=== PATIENT | male | born 1940 | race Caucasian/White ===

== ENCOUNTER 2021-07-10 23:21 | Inpatient (IN) | payer MEDICARE, SELFPAY ==
[~2021-07-10] VITALS: Ht 157.5 cm; Wt 45.4 kg
--- NOTE | 2021-07-10 23:23 | NUR ---
PT BROUGHT TO BED 1 VIA EMS [facility]
[2021-07-10 23:32] VITALS: BP 105/54
[2021-07-10] MEDS ORDERED: ALBUTEROL SULFATE/IPRATROPIU 3 ML SOL IH ONE (23:55)
[2021-07-10] MEDS ORDERED: AZITHROMYCIN 1,000 MG in DEXTROSE 5% 500 ML IV ONE (23:55)
[2021-07-10] MEDS ORDERED: DEXAMETHASONE 4 MG/ML VIAL IVP ONE (23:55)
--- NOTE | 2021-07-11 00:02 | NUR ---
received pt from EMS and placed to bed 01. pt currently a/o x 3, gcs 14. pt is a 80 year old male with hx of HTN, HLD, GERD, DM, CVA with right sided hemiparesis biba from home for cc of dyspnea for 2 weeks. per EMS, sts that pt was dx with covid last year and PNA and recovered from it. was rediagnosed with PNA again 2 weeks ago and sent home on 02. pt noticed today that 02 was as low as 74% on 4lpm n/c. arrived to ER on 15lpm NRB. currently placed on 3lpm n/c and satting well.
[2021-07-11] MEDS ORDERED: cefTRIAXone 1,000 MG VIAL ONE (00:04)
[2021-07-11] MEDS ORDERED: AZITHROMYCIN 500 MG INJ VIAL IV ONE (00:04)
--- NOTE | 2021-07-11 00:40 | NUR ---
flu, covid swab collected.
[2021-07-11 00:55] LABS: BASOPHILS % (AUTO) 0.3 % (0.0-2.0); EOSINOPHILS # (AUTO) 0.1 K/uL (0-0.4); EOSINOPHILS % (AUTO) 1.8 % (0.0-4.0); HEMATOCRIT 24.5 % (36-52); HEMOGLOBIN 8.2 g/dL (12.0-18.0); LYMPHOCYTES # (AUTO) 0.4 K/uL (2.0-11.5); LYMPHOCYTES % (AUTO) 12.5 % (20.5-51.1); MEAN CORPUSCULAR HEMOGLOBIN 31 pg (27-31); MEAN CORPUSCULAR HGB CONC 33 g/dL (33-37); MEAN CORPUSCULAR VOLUME 93.3 fL (80-94); MONOCYTES # (AUTO) 0.3 K/uL (0.8-1.0); MONOCYTES % (AUTO) 8.7 % (1.7-9.3); NEUTROPHILS # (AUTO) 2.6 K/uL (1.8-7.7); NEUTROPHILS % (AUTO) 76.7 % (42.2-75.2); PLATELET COUNT (AUTO) 234 K/uL (140-450); RED BLOOD CELL COUNT(AUTO) 2.63 MIL/uL (4.20-6.10); RED CELL DISTRIBUTION WIDTH 15.6 % (11.6-13.7); WHITE BLOOD COUNT (AUTO) 3.4 K/uL (4.8-10.8)
[2021-07-11 01:20] LABS: ALBUMIN 1.9 g/dL (3.4-5.0); ANION GAP 9.2 (8-16); ASPARTATE AMINOTRANSFERASE 18 U/L (15-37); CARBON DIOXIDE 27.1 mmol/L (21-32); CHLORIDE 104 mmol/L (98-107); CREATININE 1.3 mg/dL (0.6-1.3); GLUCOSE 65 mg/dL (74-106); POTASSIUM 4.3 mmol/L (3.5-5.1); SODIUM SERUM 136 mmol/L (136-145); TOTAL BILIRUBIN 0.3 mg/dL (0.0-1.0); UREA NITROGEN, BLOOD 23 mg/dL (7-18)
[2021-07-11] MEDS ORDERED: ENOXAPARIN 40 MG/0.4 ML SYR SUBQ SCH (02:00)
[2021-07-11] MEDS ORDERED: ENOXAPARIN 30 MG/0.3 ML SYR SUBQ SCH (02:15)
--- NOTE | 2021-07-11 02:20 | NUR ---
pt taken to CT via coleen
--- NOTE | 2021-07-11 03:30 | NUR ---
NAD at this time. pt laying down on semi fowlers position.
--- NOTE | 2021-07-11 04:15 | NUR ---
remains on 6lpm n/c at this time. NAD
--- NOTE | 2021-07-11 07:15 | NUR ---
report received from yue ivy. all cares transferred at this time.
[2021-07-11] MEDS ORDERED: ACETAMINOPHEN 325 MG TAB PO PRN (09:25)
[2021-07-11] MEDS ORDERED: SODIUM PHOS / POTASSIUM PHOS 1 PKT PDR PO PRN (09:25)
[2021-07-11] MEDS ORDERED: MAG SULF 2000 MG/WATER PREMIX 50 ML IV PRN (09:25)
[2021-07-11] MEDS ORDERED: ONDANSETRON 4 MG/2 ML VIAL IM/IVP PRN (09:25)
[2021-07-11] MEDS ORDERED: HYDROcodone/APAP 5/325 MG 1 TAB TAB PO PRN (09:25)
[2021-07-11] MEDS ORDERED: MORPHINE SULFATE 2 MG/ML SYR IVP PRN (09:25)
[2021-07-11] MEDS ORDERED: DOCUSATE SODIUM 100 MG GELCAP PO PRN (09:25)
[2021-07-11] MEDS: NACL 0.9% 1,000 ML IV SCH (09:48)
--- NOTE | 2021-07-11 16:07 | NUR ---
PATIENT HAS BEEN SCREENED AND CATEGORIZED HIGH NUTRITION RISK. PATIENT WILL BE SEEN WITHIN 1-2 DAYS OF ADMISSION. JOE MADSEN [address]
--- NOTE | 2021-07-11 19:24 | NUR ---
REPORT GIVEN TO MILAGROS HEBERT. ALL CARE TRANSFERRED AT THIS TIME.
--- NOTE | 2021-07-11 19:33 | NUR ---
received pt from day shift MILAGROS diaz. pt currently a/o x 3, gcs 14 as baseline from previous CVA. on 3lpm n/c. IV site intact with NS maintenance running.
--- NOTE | 2021-07-11 20:35 | NUR ---
report given to Leonel LINARES from Tele unit.
[2021-07-11 21:25] VITALS: BP 123/56
--- NOTE | 2021-07-11 21:30 | NUR ---
RECEIVED PT FROM ER NURSE VIA PALLAVI FOR CONTINUITY OF CARE. PT AWAKE AND ALERT, BRITISH SPEAKING. ON ROOM AIR. IV ON RAC G18 INFUSING WELL.R ABOVE KNEE AMPUTATION. SKIN WARM, DRY AND INTACT. PT BREATHING EQUAL AND UNLABORED. DENIES SOB. DENIES ANY PAIN.PT ORIENTED TO ROOM AND CALL LIGHT, MRSA CULTURE COLLECTED. BED IN LOW LOCKED POSITION, CALL LIGHT WITHIN REACH. ALL PRECAUTION IN PLACE.WILL CONTINUE TO MONITOR.
[2021-07-11 22:19] LABS: MAGNESIUM 1.7 mg/dL (1.8-2.4); PHOSPHORUS 2.9 mg/dL (2.5-4.9)
[2021-07-11] MEDS ORDERED: ALBUTEROL SULFATE/IPRATROPIU 3 ML SOL IH PRN (23:50)
--- NOTE | 2021-07-12 00:38 | NUR ---
SCHEDULED ANTIBIOTICS GIVEN. NO ACUTE DRUG REACTION NOTED. ALL PRECAUTIONS IN PLACE. PT NO S/SX OF DISTRESS. CALL LIGHT WITHIN REACH. WILL CONTINUE TO MONITOR.
[2021-07-12 01:00] VITALS: BP 137/71
--- NOTE | 2021-07-12 02:00 | NUR ---
PT ASLEEP. NO DISTRESS NOTED. BREATHING EQUAL AND UNLABORED. ALL PRECAUTIONS IN PLACE. WILL CONTINUE TO MONITOR.
[2021-07-12 04:00] VITALS: BP 139/96
--- NOTE | 2021-07-12 04:00 | NUR ---
PT VSS STABLE. O2 SAT AT 96% ON ROOM AIR. CALL LIGHT WITHIN REACH. WILL CONTINUE TO MONITOR.
--- NOTE | 2021-07-12 06:22 | NUR ---
PT IS STABLE.NO ACUTE EVENTS THROUGHOUT THE NIGHT. ALL NEEDS ATTENDED. NO S/SX OF DISTRESS. ALL PRECAUTIONS IN PLACE.CALL LIGHT WITHIN REACH. WILL ENDORSE TO AM SHIFT NURSE.
--- NOTE | 2021-07-12 07:27 | NUR ---
ENDORSED PT TO AM SHIFT NURSE FOR CONTINUITY OF CARE. PT IS STABLE.
[2021-07-12 07:53] LABS: ANION GAP 13.6 (8-16); CHLORIDE 106 mmol/L (98-107); CREATININE 1.2 mg/dL (0.6-1.3); GLUCOSE 391 mg/dL (74-106); POTASSIUM 4.6 mmol/L (3.5-5.1); SODIUM SERUM 136 mmol/L (136-145); UREA NITROGEN, BLOOD 26 mg/dL (7-18)
[2021-07-12 08:00] VITALS: BP 122/66
--- NOTE | 2021-07-12 08:00 | NUR ---
RECEIVED REPORT FROM BAFFLE MOUNTER FOR CONTINUITY OF CARE. PATIENT ALERT AWAKE ORIENTED X2, GABONESE SPEAKING, NOT IN ANY DISTRESS NOTED. WITH IVF ON GOING AND INFUSING WELL. ON RA. ON MONITOR SHOWS SR. CALL LIGHT WITHIN REACH. NEEDS ATTENDED. WILL CONTINUE TO MONITOR.
[2021-07-12 08:07] LABS: BASOPHILS % (AUTO) 0.2 % (0.0-2.0); HEMATOCRIT 22.1 % (36-52); HEMOGLOBIN 7.3 g/dL (12.0-18.0); LYMPHOCYTES # (AUTO) 0.4 K/uL (2.0-11.5); LYMPHOCYTES % (AUTO) 8.5 % (20.5-51.1); MEAN CORPUSCULAR HEMOGLOBIN 31 pg (27-31); MEAN CORPUSCULAR HGB CONC 33 g/dL (33-37); MEAN CORPUSCULAR VOLUME 94.4 fL (80-94); MONOCYTES # (AUTO) 0.4 K/uL (0.8-1.0); MONOCYTES % (AUTO) 8.9 % (1.7-9.3); NEUTROPHILS # (AUTO) 3.4 K/uL (1.8-7.7); NEUTROPHILS % (AUTO) 82.4 % (42.2-75.2); PLATELET COUNT (AUTO) 239 K/uL (140-450); RED BLOOD CELL COUNT(AUTO) 2.34 MIL/uL (4.20-6.10); RED CELL DISTRIBUTION WIDTH 15.7 % (11.6-13.7); WHITE BLOOD COUNT (AUTO) 4.2 K/uL (4.8-10.8)
[2021-07-12] MEDS: PANTOPRAZOLE 40 MG TABEC PO SCH (08:57)
[2021-07-12] MEDS: AZITHROMYCIN 250 MG TAB PO SCH (08:57)
--- NOTE | 2021-07-12 09:00 | NUR ---
DUE MEDICATIONS GIVEN AND TOLERATED WELL. WILL CONTINUE TO MONITOR.
[2021-07-12] MEDS: NACL 0.9% 1,000 ML IV SCH (09:25)
[2021-07-12 12:00] VITALS: BP 140/71
--- NOTE | 2021-07-12 12:00 | NUR ---
REPORT GIVEN TO SNOW FOR CONTINUITY OF CARE. IN STABLE CONDITION.
--- NOTE | 2021-07-12 12:05 | NUR ---
RECEIVED REPORT FROM MANAGER CARE NURSE FOR CONTINUITY OF CARE. PT IS AWAKE AND ALERT. ON RA WITH BREATHING UNLABORED. AMBULATORY WITH ASSIST. SKIN IS WARM, DRY, AND INTACT. IV IS IN THE RIGHT AC 18 GAUGE RUNNING NS AT 40 ML PER HOUR PER ORDER. PT IS STABLE. PLAN OF CARE DISCUSSED.
--- NOTE | 2021-07-12 14:48 | NUR ---
PT'S GLUCOSE READING FROM THIS MORNING LAB DRAW WAS ELEVATED IN THE 300'S. RECHECKED PT'S BS VIA ACCU CHECK AND IT WAS 360. NOTIFIED DR. NIEVES. HE STATED TO COVER THE GLUCOSE LEVEL VIA SLIDING SCALE AND HE WILL ADD ACCU CHECKS ACHS. WILL ADMINISTER INSULIN WHEN ORDERED.
[2021-07-12] MEDS ORDERED: DEXTROSE 50% 50 ML SYR IVP PRN (14:50)
[2021-07-12] MEDS: INSULIN LISPRO SLIDING SCALE 100 UNITS/ML VIAL SUBQ PRN ×2 (14:59→17:44)
--- NOTE | 2021-07-12 15:01 | NUR ---
07/12/21 RD INITIAL ASSESSMENT COMPLETED PLEASE REFER TO NUTRITION ASSESSMENT UNDER CARE ACTIVITY FOR ESTIMATED NUTRITIONAL NEEDS. 1. [facility] DIET D/T INCREASED BLOOD GLUCOSE 2. ADD GLUCERNA BID PER PROTOCOL 3. MONITOR BLOOD GLUCOSE LEVELS AND PO INTAKE 4. RD TO FOLLOW-UP 3-5 DAYS, MODERATE RISK (DOWNGRADED D/T PT EATING WELL) JOE MADSEN RD
[2021-07-12 16:00] VITALS: BP 114/83
--- NOTE | 2021-07-12 16:49 | NUR ---
ROUNDED ON PT. HE IS SLEEPING IN SEMI FOWLERS POSITION. NO DISTRESS NOTED ON RA. PT DENIES PAIN OR ANY DISCOMFORT. WILL CONTINUE TO MONITOR.
[2021-07-12] MEDS: BLOOD GLUCOSE MONITORING 1 DEV DEV FS SCH ×2 (17:43→21:27)
--- NOTE | 2021-07-12 18:29 | NUR ---
PT IS STABLE. SPEAKING APPROPRIATELY. NO SIGNS OR SYMPTOMS OF DISTRESS. EATING DINNER AT BEDSIDE. WILL CONTINUE TO MONITOR.
--- NOTE | 2021-07-12 19:10 | NUR ---
ENDORSED PT TO BASIN OPERATOR NURSE FOR CONTINUITY OF CARE. PT IS STABLE. PLAN OF CARE DISCUSSED.
--- NOTE | 2021-07-12 19:15 | NUR ---
RECEIVED PT BEDSIDE REPORT FOR CONTINUITY OF CARE.
[2021-07-12 20:00] VITALS: BP 131/60
[2021-07-13 04:00] VITALS: BP 128/62
[2021-07-13 06:00] VITALS: BP 128/62
[2021-07-13] MEDS: BLOOD GLUCOSE MONITORING 1 DEV DEV FS SCH ×4 (06:08→20:40)
[2021-07-13 07:47] LABS: ANION GAP 12.1 (8-16); CARBON DIOXIDE 22.1 mmol/L (21-32); CHLORIDE 108 mmol/L (98-107); CREATININE 1.1 mg/dL (0.6-1.3); GLUCOSE 97 mg/dL (74-106); POTASSIUM 4.2 mmol/L (3.5-5.1); SODIUM SERUM 138 mmol/L (136-145); UREA NITROGEN, BLOOD 24 mg/dL (7-18)
--- NOTE | 2021-07-13 07:57 | NUR ---
RECEIVED REPORT FROM SECTION GANG FOR CONTINUITY OF CARE. PATIENT ALERT AWAKE ORIENTED X3, NOT IN ANY ACUTE DISTRESS NOTED. WITH IVF ON GOING ON RIGHT AC GAUGE 18 INFUSING WELL. INITIAL ASSESSMENT INITIATED. FALL RISK OBSERVED. CALL LIGHT WITHIN REACH. NEEDS ATTENDED. WILL CONTINUE TO MONITOR.
[2021-07-13 08:00] VITALS: BP 124/70
[2021-07-13 08:17] LABS: BASOPHILS % (AUTO) 0.2 % (0.0-2.0); EOSINOPHILS % (AUTO) 0.9 % (0.0-4.0); HEMATOCRIT 24.5 % (36-52); HEMOGLOBIN 8.1 g/dL (12.0-18.0); LYMPHOCYTES # (AUTO) 0.7 K/uL (2.0-11.5); LYMPHOCYTES % (AUTO) 15.7 % (20.5-51.1); MEAN CORPUSCULAR HEMOGLOBIN 31 pg (27-31); MEAN CORPUSCULAR HGB CONC 33 g/dL (33-37); MEAN CORPUSCULAR VOLUME 93.7 fL (80-94); MONOCYTES # (AUTO) 0.4 K/uL (0.8-1.0); MONOCYTES % (AUTO) 8.4 % (1.7-9.3); NEUTROPHILS # (AUTO) 3.3 K/uL (1.8-7.7); NEUTROPHILS % (AUTO) 74.8 % (42.2-75.2); PLATELET COUNT (AUTO) 319 K/uL (140-450); RED BLOOD CELL COUNT(AUTO) 2.61 MIL/uL (4.20-6.10); RED CELL DISTRIBUTION WIDTH 15.6 % (11.6-13.7); WHITE BLOOD COUNT (AUTO) 4.4 K/uL (4.8-10.8)
[2021-07-13] MEDS: PANTOPRAZOLE 40 MG TABEC PO SCH (08:41)
[2021-07-13] MEDS: AZITHROMYCIN 250 MG TAB PO SCH (08:41)
[2021-07-13] MEDS: INSULIN LISPRO SLIDING SCALE 100 UNITS/ML VIAL SUBQ PRN ×2 (11:26→20:44)
--- NOTE | 2021-07-13 14:02 | NUR ---
DC PLANNING: THE PATIENT PRESENTED WITH SOB AND WAS DESATTING TO THE LOW 80'S AT HOME PER FAMILY. H/O CABG, RIGHT BKA, FAMILY STATES THAT THE PATIENT HAS HAD NEW ONSET CONFUSION FOR THE LAST 2 WEEKS BUT BASELINE IS ALERT AND ORIENTED. CXR SHOW EFFUSIONS AND ATELECTASIS, ON ZITHROMAX PO, ROCEPHIN IV AND IVF'S, ON RA. CM SPOKE WITH THE PATIENTS DAUGHTER JASON BY PHONE TO DISCUSS DCP AND ORDER FOR SNF PLACEMENT. THE PATIENT LIVES IN A SINGLE STORY HOUSE WITH HIS DAUGHTER, , SON IN LAW AND GRANDCHILDREN. HE CAN STAND BUT IS PRIMARILY WC BOUND AND ALSO HAS A 3 IN 1 COMMODE, SLIDING BOARD AND O2. HE HAD COVID LAST MAY AND WAS LAST BY [facility] IN MAY. FAMILY WANTS PATIENT TO DC HOME WITH HOME HEALTH, CM WILL FOLLOW FOR NEEDS. Addendum: 07/14/21 at 1134 by Nydia Rico CM DC PLANNING: HOME HEALTH ORDERS AND CLINICAL PACKET FAXED TO [facility]. CM WILL FOLLOW. Addendum: 07/14/21 at 1437 by Nydia Rico CM DC PLANNING: MULTIPLE ATTEMPTS TO FAX HOME HEALTH REQUEST TO [facility], [facility] IS TRYING TO REACH THEM BY PHONE TO SUBMIT REQUEST TO RESUME HOME HEALTH. [facility] WILL FOLLOW.
[2021-07-13] MEDS: NACL 0.9% 1,000 ML IV SCH (15:53)
[2021-07-13 16:00] VITALS: BP 149/81
--- NOTE | 2021-07-13 19:20 | NUR ---
REPORT GIVEN TO PERINATAL TECH FOR CONTINUITY OF CARE. PATIENT IN STABLE CONDITION.
--- NOTE | 2021-07-13 19:21 | NUR ---
RECEIVED REPORT FROM DAY RN. PT IS AAOX3. CZECH SPEAKING ONLY. RESPIRATIONS ARE EQUAL AND UNLABORED ON RA. PT SKIN IS INTACT. R AKA. AMBULATORY W/ ASSIST. IV IS IN THE RIGHT AC 18 GAUGE RUNNING NS AT 40 ML PER HOUR PER ORDER. PT IS CONTINENT OF B/B. PT IS STABLE. PLAN OF CARE DISCUSSED. CALL LIGHT IS WITHIN REACH. WILL CONTINUE TO MONITOR.
[2021-07-13 20:00] VITALS: BP 124/61
--- NOTE | 2021-07-13 20:43 | NUR ---
VSS. BS 184 ADMIN HUMALOG PER ORDERS. TED MEDICATION GIVEN. MED EDUCATION PROVIDED. ALL NEEDS MET. WILL CONTINUE TO MONITOR.
--- NOTE | 2021-07-13 22:10 | NUR ---
ROUNDS MADE. PT OBSERVED LAYING IN BED WITH BLANKET OVER HEAD. CHEST RISE AND FALL NOTED. CALL LIGHT IS WITHIN REACH.
--- NOTE | 2021-07-14 00:18 | NUR ---
ASSISTED PT WITH URINAL. ALL NEEDS MET. CALL LIGHT IS WITHIN REACH
--- NOTE | 2021-07-14 02:20 | NUR ---
ROUNDS MADE. PT OBSERVED LAYING IN BED APPEARS TO BE ASLEEP. CHESTS RISE AND FALL NOTED. WILL CONTINUE TO MONITOR.
[2021-07-14 04:00] VITALS: BP 127/60
--- NOTE | 2021-07-14 04:00 | NUR ---
VITAL SIGNS ARE WITHIN NORMAL LIMITS. ALL SAFETY MEASURES ARE IN PLACE. WILL CONTINUE TO MONITOR.
[2021-07-14] MEDS: BLOOD GLUCOSE MONITORING 1 DEV DEV FS SCH ×4 (05:48→21:51)
--- NOTE | 2021-07-14 06:30 | NUR ---
BS 88 NO COVERAGE NEEDED. SNACK AT BEDSIDE. ALL SAFETY MEASURES ARE IN PLACE. CALL LIGHT IS WITHIN REACH. WILL CONTINUE TO MONITOR.
--- NOTE | 2021-07-14 07:08 | NUR ---
GAVE BEDSIDE REPORT TO DAY RN. PT ENDORSED IN STABLE CONDITION.
--- NOTE | 2021-07-14 07:10 | NUR ---
RECEIVED ENDORSEMENT FROM ARMORED MACHINE OPERATOR FOR CONTINUITY OF CARE. PT ASLEEP ALL SAFETY MEASURE IN PLACE.
[2021-07-14 07:32] LABS: BASOPHILS % (AUTO) 0.3 % (0.0-2.0); HEMATOCRIT 23.8 % (36-52); HEMOGLOBIN 7.9 g/dL (12.0-18.0); LYMPHOCYTES # (AUTO) 0.6 K/uL (2.0-11.5); MEAN CORPUSCULAR HEMOGLOBIN 31 pg (27-31); MEAN CORPUSCULAR HGB CONC 33 g/dL (33-37); MEAN CORPUSCULAR VOLUME 93.2 fL (80-94); MONOCYTES # (AUTO) 0.4 K/uL (0.8-1.0); MONOCYTES % (AUTO) 10.8 % (1.7-9.3); NEUTROPHILS # (AUTO) 2.6 K/uL (1.8-7.7); NEUTROPHILS % (AUTO) 70.9 % (42.2-75.2); PLATELET COUNT (AUTO) 319 K/uL (140-450); RED BLOOD CELL COUNT(AUTO) 2.56 MIL/uL (4.20-6.10); WHITE BLOOD COUNT (AUTO) 3.7 K/uL (4.8-10.8)
[2021-07-14 07:52] LABS: ANION GAP 12.1 (8-16); CARBON DIOXIDE 24.7 mmol/L (21-32); CHLORIDE 108 mmol/L (98-107); CREATININE 1.3 mg/dL (0.6-1.3); GLUCOSE 91 mg/dL (74-106); POTASSIUM 3.8 mmol/L (3.5-5.1); SODIUM SERUM 141 mmol/L (136-145); UREA NITROGEN, BLOOD 18 mg/dL (7-18)
[2021-07-14] MEDS: amLODIPine 5 MG TAB PO SCH (08:48)
[2021-07-14] MEDS: carvediloL 3.125 MG TAB PO SCH ×2 (08:48→21:44)
[2021-07-14] MEDS: ASPIRIN 81 MG TAB.CHEW PO SCH (08:48)
[2021-07-14] MEDS: PANTOPRAZOLE 40 MG TABEC PO SCH (08:48)
[2021-07-14] MEDS: AZITHROMYCIN 250 MG TAB PO SCH (08:48)
--- NOTE | 2021-07-14 08:57 | NUR ---
PT TOOK ALL DUE MEDICATION TOLERATED WELL. ON BED EATING HIS BREAKFAST NOT ON ANY DISCOMFORT. NO ADVERSE REACTION NOTED ON ANTIBIOTIC.
[2021-07-14] MEDS: NACL 0.9% 1,000 ML IV SCH (09:25)
--- NOTE | 2021-07-14 10:00 | NUR ---
PT ON BED RESTING NO DISTRESS NOTED.
[2021-07-14] MEDS: INSULIN LISPRO SLIDING SCALE 100 UNITS/ML VIAL SUBQ PRN ×2 (11:19→21:49)
--- NOTE | 2021-07-14 11:30 | NUR ---
PT BLOOD SUGAR CHECK GIVEN INSULIN COVERAGE. PT NO ADVERSE REACTION NOTED ON ANTIBIOTIC THERAPY.
--- NOTE | 2021-07-14 13:30 | NUR ---
PT ON BED ATE LUNCH NO DISTRESS NOTED. IV HYDRATION RUNNING AT 40 CCF/HOUR TOLERATED WELL.
--- NOTE | 2021-07-14 15:30 | NUR ---
PT ON STABLE CONDITION ASLEEP.
[2021-07-14 16:00] VITALS: BP 146/78
[2021-07-14] MEDS ORDERED: ASPI-1749 PO (17:19)
--- NOTE | 2021-07-14 17:30 | NUR ---
PT BLOOD SUGAR CHECK NO COVERAGE NOTED.
--- NOTE | 2021-07-14 19:30 | NUR ---
GAVE ENDORSEMENT TO DATA WAREHOUSE MANAGER NURSE FOR CONTINUITY OF CARE.
--- NOTE | 2021-07-14 19:35 | NUR ---
RECEIVED REPORT FROM DAY SHIFT FOR CONTINUITY OF CARE. PATIENT A&OX2, GREENLANDIC SPEAKING, NO DISTRESS NOTED. WITH IVF ON GOING AND INFUSING WELL. ON RA. CALL LIGHT WITHIN REACH.WILL CONTINUE TO MONITOR.
[2021-07-14 20:00] VITALS: BP 130/64
--- NOTE | 2021-07-14 21:50 | NUR ---
BLOOD SUGAR WAS 213. INSULIN COVERAGE NEEDED. GIVEN 4 UNITS INSULIN. NO DISTRESS NOTED. WILL CONTINUE TO MONITOR.
--- NOTE | 2021-07-14 21:50 | NUR ---
DUE MEDICATION GIVEN. PT TOLERATED WELL.ALL PRECAUTIONS IN PLACE. WILL CONTINUE TO MONITOR.
--- NOTE | 2021-07-14 23:56 | NUR ---
PT ASLEEP. BREATHING UNLABORED AND EQUAL. CALL LIGHT WITHIN REACH. WILL CONTINUE TO MONITOR.
--- NOTE | 2021-07-15 01:00 | NUR ---
SCHEDULED ANTIBIOTICS GIVEN. NO DISTRESS NOTED. WILL CONTINUE TO MONITOR.
--- NOTE | 2021-07-15 03:00 | NUR ---
PT ASLEEP. VISIBLE CHEST RISE AND FALL NOTED. CALL LIGHT WITHIN REACH. WILL CONTINUE TO MONITOR.
--- NOTE | 2021-07-15 04:30 | NUR ---
PT CLEANED AND CHANGED. PT TOLERATED WELL. WILL CONTINUE TO MONITOR.
--- NOTE | 2021-07-15 06:39 | NUR ---
PT ASLEEP. VISIBLE CHEST RISE AND FALL NOTED. CALL LIGHT WITHIN REACH. WILL CONTINUE TO MONITOR.
--- NOTE | 2021-07-15 06:42 | NUR ---
PT IS STABLE. NO ACUTE EVENTS THROUGHOUT THE NIGHT. NO S/SX O DISTRESS NOTED. NO OTHER COMPLAINS AT THIS TIME. ALL NEEDS ATTENDED. ALL PRECAUTIONS IN PLACE.CALL LIGHT WITHIN REACH. WILL ENDORSE TO AM SHIFT NURSE.
--- NOTE | 2021-07-15 07:10 | NUR ---
RECEIVED REPORT FROM CARE MANAGEMENT ASSISTANT NURSE FOR CONTINUITY OF CARE. PT IN BED AT THIS TIME SLEEPING. RESPIRATIONS ARE EVEN AND UNLABORED. NO SIGNS OF DISTRESS NOTED. PT ON ROOM AIR, WITH 02 SAT AT 96%. NO COMPLAINTS OF PAIN OR DISCOMFORT AT THIS TIME. CALL LIGHT WITHIN REACH. ALL SAFETY MEASURES IN PLACE. WILL CONTINUE TO MONITOR.
[2021-07-15] MEDS: BLOOD GLUCOSE MONITORING 1 DEV DEV FS SCH ×3 (07:32→16:49)
--- NOTE | 2021-07-15 07:32 | NUR ---
PT ENDORSED TO AM SHIFT NURSE FOR CONTINUITY OF CARE.PT IS STABLE.
[2021-07-15 08:00] VITALS: BP 143/66
[2021-07-15 08:14] LABS: BASOPHILS % (AUTO) 0.4 % (0.0-2.0); EOSINOPHILS % (AUTO) 0.7 % (0.0-4.0); HEMATOCRIT 23.9 % (36-52); HEMOGLOBIN 7.9 g/dL (12.0-18.0); LYMPHOCYTES # (AUTO) 0.9 K/uL (2.0-11.5); LYMPHOCYTES % (AUTO) 16.2 % (20.5-51.1); MEAN CORPUSCULAR HEMOGLOBIN 31 pg (27-31); MEAN CORPUSCULAR HGB CONC 33 g/dL (33-37); MEAN CORPUSCULAR VOLUME 93.3 fL (80-94); MONOCYTES # (AUTO) 0.6 K/uL (0.8-1.0); MONOCYTES % (AUTO) 11.6 % (1.7-9.3); NEUTROPHILS # (AUTO) 3.9 K/uL (1.8-7.7); NEUTROPHILS % (AUTO) 71.1 % (42.2-75.2); PLATELET COUNT (AUTO) 347 K/uL (140-450); RED BLOOD CELL COUNT(AUTO) 2.56 MIL/uL (4.20-6.10); RED CELL DISTRIBUTION WIDTH 16.7 % (11.6-13.7); WHITE BLOOD COUNT (AUTO) 5.4 K/uL (4.8-10.8)
[2021-07-15] MEDS: PANTOPRAZOLE 40 MG TABEC PO SCH (08:33)
[2021-07-15] MEDS: carvediloL 3.125 MG TAB PO SCH (08:33)
[2021-07-15] MEDS: amLODIPine 5 MG TAB PO SCH (08:34)
[2021-07-15] MEDS: AZITHROMYCIN 250 MG TAB PO SCH (08:34)
[2021-07-15] MEDS: ASPIRIN 81 MG TAB.CHEW PO SCH (08:34)
[2021-07-15] MEDS: NACL 0.9% 1,000 ML IV SCH (08:42)
[2021-07-15 11:22] LABS: ANION GAP 15.8 (8-16); CARBON DIOXIDE 22.2 mmol/L (21-32); CHLORIDE 107 mmol/L (98-107); CREATININE 1.1 mg/dL (0.6-1.3); GLUCOSE 78 mg/dL (74-106); SODIUM SERUM 141 mmol/L (136-145); UREA NITROGEN, BLOOD 16 mg/dL (7-18)
[2021-07-15] MEDS: INSULIN LISPRO SLIDING SCALE 100 UNITS/ML VIAL SUBQ PRN (11:38)
--- NOTE | 2021-07-15 11:38 | NUR ---
PT BLOOD GLUCOSE WAS 224. COVERED WITH 4 UNITS INSULIN PER SLIDING SCALE. CALL LIGHT WITHIN REACH. ALL SAFETY MEASURES IN PLACE. WILL CONTINUE TO MONITOR.
--- NOTE | 2021-07-15 15:21 | NUR ---
DID ROUNDS ON PT. PT IN BED SLEEPING AT THIS TIME. RESPIRATIONS ARE EVEN AND UNLABORED. NO SIGNS OF DISTRESS NOTED. NO COMPLAINTS OF PAIN OR DISCOMFORT AT THIS TIME. WILL CONTINUE TO MONITOR. CALL LIGHT WITHIN REACH. ALL SAFETY MEASURES IN PLACE.
--- NOTE | 2021-07-15 16:49 | NUR ---
PT BLOOD GLUCOSE WAS 128. NO INSULIN COVERAGE NEEDED PER MD ORDER. WILL CONTINUE TO MONITOR.
[2021-07-15] MEDS ORDERED: AMLO-3 PO (17:49)
[2021-07-15] MEDS ORDERED: CARV3.122 PO (17:49)
[2021-07-15 18:14] VITALS: BP 143/66
--- NOTE | 2021-07-15 19:00 | NUR ---
DISCHARGE ORDER IN PLACE. WENT OVER DISCHARGE PAPERWORK WITH PT. ANSWERED ALL QUESTIONS. PT SIGNED ALL PAPERWORK. REMOVED IV, IV CATHETER INTACT. REMOVED WRIST BAND. ALL BELONGINGS TAKEN UPON DISCHARGE. PT DISCHARGED HOME WITH FAMILY.
--- NOTE | 2021-07-17 09:27 | NUR ---
PHYSICAL THERAPY CO-SIGN The Physical Therapy Progress Notes documented by [employer] have been reviewed. Reviewed/Co-Signed by: Mansi Galvez Documentation Done by: JOSE GUADALUPE CONSTANTINO PTA Addendum: 07/17/21 at 3294 by Mansi Galvez PT Amended: Links added.
== END 2021-07-15 19:00 | disposition home health service (06) | DRG 193 ==
LOC: MED 23:21 → MTU 07-11 03:03
PROVIDERS: ADMIT Hospitalist; ATTEND Hospitalist
DX: J18.9 Pneumonia, unspecified organism (principal); J96.01 Acute respiratory failure with hypoxia; E43 Unspecified severe protein-calorie malnutrition; G93.41 Metabolic encephalopathy; Z68.1 Body mass index [BMI] 19.9 or less, adult; J90 Pleural effusion, not elsewhere classified; I25.10 Atherosclerotic heart disease of native coronary artery without angina pectoris; G20 Parkinson's disease; F02.80 Dementia in other diseases classified elsewhere, unspecified severity, without behavioral disturbance, psychotic disturbance, mood disturbance, and anxiety; D63.8 Anemia in other chronic diseases classified elsewhere; E83.42 Hypomagnesemia; R59.0 Localized enlarged lymph nodes; K21.9 Gastro-esophageal reflux disease without esophagitis; E11.9 Type 2 diabetes mellitus without complications; I10 Essential (primary) hypertension; Z20.822 Contact with and (suspected) exposure to COVID-19; Z95.1 Presence of aortocoronary bypass graft
CPT/HCPCS: 36415; 70450; 71045; 71275; 80048; 80053; 82140; 82948; 83605; 83735; 83880; 84100; 84484; 85025; 85379; 87040; 87081; 93005; 93880; 94640; 96365; 96366; 96367; 97110; 97112; 97163-GP; 97530; 99285; J0456; J0696; J1100; J1644; J1815; J7060; Q0092; Q9967